=== PATIENT | female | born 1975 | race Caucasian/White ===

== ENCOUNTER → 2019-08-11 07:41 | Outpatient (CLI) | payer OTHER, SELFPAY ==
--- NOTE | ~2019-08-11 | MMUS_ITS ---
EXAMINATION: MM diagnostic mammo unilat LT, US breast LT limited HISTORY: Left breast asymmetry on screening mammogram TECHNIQUE: Additional 3-D tomosynthesis images of the left breast were performed and synthetic 2-D im ages were generated. CAD analysis was submitted and interpreted. High resolution limited left breast ultrasound was performed. COMPARISON: 07/25/2019, 02/24/2016 FINDINGS: MAMMOGRAPHIC FINDINGS: There is a persistent asymmetry at the 12:00 location in the middle third of the breast 6.5 cm from t he nipple best appreciated on the mediolateral oblique view. No suspicious calcification or principal technical architect ural distortion are identified. ULTRASOUND: There is a 6 mm x 3 mm oval, circumscribed, parallel, hypoechoic mass with no posterior features or i nternal vascularity at the 11:00 location 3 cm from the nipple. An adjacent 5 mm x 3 mm mass with sim ilar sonographic features is also seen. IMPRESSION: 1. Probably benign left breast masses. 2. Recommend 6 month follow-up BI-RADS category 3, probably benign findings. Reviewed, dictated and finalized at location A. LESS MANAGER IMPRESSION: 1. Probably benign left breast masses. 2. Recommend 6 month follow-up BI-RADS category 3, probably benign findings.
== END ==
PROVIDERS: PCP Obstetrics & Gynecology Gynecology; Visit Provider Obstetrics & Gynecology Gynecology
DX: R92.8 Other abnormal and inconclusive findings on diagnostic imaging of breast (principal)
CPT/HCPCS: 76642; 77065

== ENCOUNTER → 2020-01-25 07:57 | Outpatient (CLI) | payer OTHER, SELFPAY ==
--- NOTE | ~2020-01-25 | MMUS_ITS ---
EXAMINATION: MM diagnostic desirae LT w jesse, US breast LT limited HISTORY: Six-month follow-up for probably benign left breast mass TECHNIQUE: Craniocaudal, mediolateral, and mediolateral oblique 3-D tomosynthesis images of the left breast were performed and synthetic 2-D images were generated. CAD analysis was submitted and interpr eted. High resolution limited left breast ultrasound was performed. COMPARISON: 08/11/2019, 07/25/2019, 02/24/2016 BREAST PARENCHYMAL COMPOSITION: The breasts are extremely dense, which lowers the sensitivity of mamm ography. FINDINGS: MAMMOGRAPHIC FINDINGS: An asymmetry in the middle/posterior third of the breast 7 cm from the nipple on the mediolateral obl ique view is stable and has an appearance similar to the 2016 comparison. There has been no suspiciou s interval change. ULTRASOUND: A 7 mm x 3 mm oval, circumscribed, parallel, hypoechoic mass with posterior acoustic enhancement and no internal vascularity is present at the 11:00 location 3 cm from the nipple. An adjacent 4 mm x 2 m m mass with similar sonographic features has slightly decreased in size. There is been no suspicious interval change. IMPRESSION: 1. Stable, probably benign left breast masses. 2. Recommend 6 month follow-up left diagnostic mammogram and ultrasound. BI-RADS category 3, probably benign findings. Reviewed, dictated and finalized at location A. IMPRESSION: 1. Stable, probably benign left breast masses. 2. Recommend 6 month follow-up left diagnostic mammogram and ultrasound. BI-RADS category 3, probably benign findings.
== END ==
PROVIDERS: Visit Provider Obstetrics & Gynecology Gynecology
DX: R92.8 Other abnormal and inconclusive findings on diagnostic imaging of breast (principal)
CPT/HCPCS: 76642; 77061; 77065; G0279

== ENCOUNTER → 2020-09-30 14:11 | Outpatient (CLI) | payer OTHER, SELFPAY ==
--- NOTE | ~2020-09-30 | MMUS_ITS ---
EXAMINATION: MM diagnostic desirae BI w jesse, US breast LT limited HISTORY: Follow-up left breast masses TECHNIQUE: Additional 3-D tomosynthesis images of breasts were performed and synthetic 2-D images wer e generated. CAD analysis was submitted and interpreted. High resolution Limited left breast ultrasou nd was performed. COMPARISON: Comparison to multiple prior studies sequentially, with oldest reviewed study dated 02/23. BREAST PARENCHYMAL COMPOSITION: The breasts are extremely dense, which lowers the sensitivity of mamm ography FINDINGS: MAMMOGRAPHIC FINDINGS: . There are no suspicious masses, calcifications or architectural distortion in either breast to sugg est malignancy. ULTRASOUND: Limited left breast ultrasound: There are adjacent small oval hypoechoic masses of the left breast at 11:00, 3 cm from the nipple, largest measuring 5 mm, likely benign. These masses are oval circumscri bed parallel without posterior features or internal vascularity. IMPRESSION: 1. Probable benign left breast masses. 2. Recommend 6 month follow-up left breast ultrasound BI-RADS category 3, probably benign findings. Reviewed, dictated and finalized at location A. IMPRESSION: 1. Probable benign left breast masses. 2. Recommend 6 month follow-up left breast ultrasound BI-RADS category 3, probably benign findings.
== END ==
PROVIDERS: PCP Family Medicine; Visit Provider Obstetrics & Gynecology Gynecology
DX: R92.8 Other abnormal and inconclusive findings on diagnostic imaging of breast (principal)
CPT/HCPCS: 76642; 77062; 77066; G0279

== ENCOUNTER → 2021-04-28 15:20 | Outpatient (CLI) | payer OTHER, SELFPAY ==
--- NOTE | ~2021-04-28 | US_ITS ---
US breast LT limited 04/28/2021 15:36 Indication: Follow-up left breast mass Procedure: High-resolution Limited ultrasound of the left breast Comparison: Ultrasound dated 09/30/2020 Findings: There has been slight enlargement of irregular shaped hypoechoic mass measuring 8 x 6 x 7 m m compared with 5 x 3 x 3 mm on prior examination. There is subtle posterior acoustic enhancement. Impression: 1: Slightly increased size of 8 mm left breast mass at 11:00, 3 cm from the nipple. BI-RADS CATEGORY 4-SUSPICIOUS ABNORMALITY RECOMMENDATION: Ultrasound-guided left breast biopsy recommended. Reviewed, dictated and finalized at location A. Impression: 1: Slightly increased size of 8 mm left breast mass at 11:00, 3 cm from the nip ple. BI-RADS CATEGORY 4-SUSPICIOUS ABNORMALITY RECOMMENDATION: Ultrasound-guided left breast biopsy recommended.
== END ==
PROVIDERS: Visit Provider Obstetrics & Gynecology Gynecology
DX: N63.20 Unspecified lump in the left breast, unspecified quadrant (principal)
CPT/HCPCS: 76642

== ENCOUNTER 2021-05-15 09:07 | Outpatient (CLI) | payer OTHER, SELFPAY ==
--- NOTE | ~2021-05-15 | US_ITS ---
Consultation: Real-time imaging of the left breast demonstrates normal heterogeneous echotexture. The area of interest noted on prior examination has a similar appearance to surrounding breast parenchym a. No discrete mass is identified which is suspicious for malignancy. Short-term follow-up mammogram and ultrasound in 6 months recommended. BI-RADS CATEGORY 3-PROBABLY BENIGN FINDING RECOMMENDATION: Six-month follow-up diagnostic left mammogram and ultrasound recommended. Reviewed, dictated and finalized at location A.
== END 2021-05-15 09:08 | disposition home or self-care (01) ==
PROVIDERS: PCP Family Medicine; Visit Provider Surgery
DX: R92.8 Other abnormal and inconclusive findings on diagnostic imaging of breast (principal)
CPT/HCPCS: 99199

== ENCOUNTER → 2021-06-21 14:30 | Outpatient (CLI) | payer OTHER, SELFPAY ==
--- NOTE | ~2021-06-21 | US_ITS ---
EXAMINATION: US pelvic complete EXAM DATE: 06/21/2021 14:51 INDICATION: Other intra-abdominal and pelvic swelling, mass and lump. TECHNIQUE: Pelvic transabdominal sonogram was performed. There are multiple grayscale and Doppler im ages available for interpretation. Comparison is made to prior examination from 07/01/2015. FINDINGS: Uterus measures 8.4 x 5.2 x 7.4 cm, with multiple fibroids identified measuring up to 5 cm . Endometrial stripe measures 6 mm, within normal limits. There is no free pelvic fluid. Right adnexa: The ovary is not identified. There is no adnexal mass. Left adnexa: The ovary is not identified. There is no adnexal mass. IMPRESSION: Fibroid uterus. Reviewed, dictated and finalized at location A. ER HELPER IMPRESSION: Fibroid uterus.
== END ==
PROVIDERS: PCP Family Medicine; Visit Provider Nurse Practitioner
DX: R19.09 Other intra-abdominal and pelvic swelling, mass and lump (principal); D25.9 Leiomyoma of uterus, unspecified
CPT/HCPCS: 76856

== ENCOUNTER 2022-03-29 17:09 | Emergency (ER) | payer OTHER, SELFPAY ==
--- NOTE | 2022-03-29 17:12 | ED.FEMALEGU ---
HPI - Female Genitourinary General Chief complaint: Urogenital-Female Stated complaint: Possible UTI Time Seen by Provider: 03/29/22 17:32 Source: patient and RN notes reviewed Mode of arrival: ambulatory Limitations: no limitations History of Present Illness HPI Narrative: 46-year-old female presents with concern for urinary tract infection. She reports she began having urinary frequency and bladder pressure with some mild right side pain and nausea. She reports having normal bowel movements, she has not concern for STDs. She reports she has had a urinary tract infection in the past, however she does not have history of frequent UTIs. She denies fever, body aches, chills, sweats, vomiting, urgency, hematuria. MD elicited complaint: UTI Related Data Home Medications Medication Instructions Recorded Confirmed norgestimate-ethinyl estradiol 1 tablet PO DAILY 05/03/21 03/29/22 0.18 mg/0.215mg/0.25mg-35 mcg(28)tablet (Tri Femynor) Allergies Allergy/AdvReac Type Severity Reaction Status Date / Time ciprofloxacin AdvReac Intermediate NAUSEA AND Verified 03/29/22 17:13 STOMACH PAIN Review of Systems Review of Systems: CONSTITUTIONAL: Denies malaise, chills, sweats, or fever. CARDIOVASCULAR: Denies chest pain, palpitations, or edema. RESPIRATORY: Denies cough or dyspnea. GASTROINTESTINAL: Denies abdominal pain, vomiting, diarrhea. Reports nausea GENITOURINARY: Reports frequency, suprapubic pressure. Denies dysuria, urgency, hematuria, reports mild right side discomfort SKIN: Denies rash or itching. MUSCULOSKELETAL: Denies back pain or myalgia. All systems reviewed & are unremarkable except as noted in HPI and below PMFSH Past Medical History Medical History High cholesterol Surgical History Surgical History H/O exploratory laparotomy (1994, ) Family History Family History Mother Hypertension Grandparent Carcinoma of colon Father Diabetes mellitus Hypothyroid High cholesterol Other Family history of malignant neoplasm of breast Social History Social History Smoking status: Never smoker Alcohol intake: never Comments At time of signature, agree with nursing past medical, surgical, social and family history. There is no relevant family history pertinent to the presenting complaint Exam Narrative: GENERAL: Well-appearing, well-nourished, and in no acute distress. HEAD: Normocephalic. EYES: PERRLA, conjunctivae clear. NECK: Supple. No lymphadenopathy CHEST: Clear to auscultation. No respiratory distress. HEART: Regular rate and rhythm. ABDOMEN: Soft, nontender upon palpation, nondistended, normal active bowel sounds, no palpable or pulsatile masses, no guarding. No CVA tenderness SKIN: Warm, dry, no rash. NEURO: Alert and oriented x3. PSYCH: Normal mood and affect Course Course Emergency Course: Discussed UA findings with patient, discussed option of waiting for urine culture results to find out if an antibiotic is necessary or starting antibiotic now. Patient would prefer to start an antibiotic now. Patient is aware of diagnosis, understands and agrees to treatment plan. Anticipatory guidance given. Patient agrees to follow-up as directed and is aware of reasons to seek care at the emergency department. Portions of this record may have been created with voice recognition software Level of Care: Express Care Visit Vital Signs Vital signs: Reviewed. MDM - Female Genitourinary MDM Narrative Medical decision making narrative: Exam findings and UA show no acute concerns or changes; patient is non-toxic appearing and is in no distress. Patient is appropriate for outpatient treatment and follow-up. Differential Diagnosis Differential ananya
[2022-03-29 17:13] VITALS: BP 131/67; PULSE 60; RESP 15; TEMP 36.5; O2SAT 100
== END 2022-03-29 17:41 | disposition home or self-care (01) ==
PROVIDERS: Emergency Provider Nurse Practitioner
DX: R35.0 Frequency of micturition (principal); R11.0 Nausea; E78.00 Pure hypercholesterolemia, unspecified
CPT/HCPCS: 81003; 87086; 99213; G0463

== ENCOUNTER → 2022-07-04 16:04 | Outpatient (CLI) | payer OTHER, SELFPAY ==
--- NOTE | ~2022-07-04 | XR_ITS ---
Lumbosacral Spine: AP, oblique, and lateral views Clinical History: Pain Findings: Mild levoscoliosis noted. The vertebral bodies and posterior elements are intact. The int ervertebral disc spaces are preserved. The sacroiliac joints are normally outlined. Impression: Mild levoscoliosis. Reviewed, dictated and finalized at [facility]. R QUALITY ASSISTANT Impression: Mild levoscoliosis.
--- NOTE | ~2022-07-04 | XR_ITS ---
Thoracic spine: Clinical Indication: Pain AP and lateral views were performed. No fracture is seen. Mild dextroscoliosis noted. The intervertebral disc spaces appear normal. Parave rtebral soft tissues appear normal. Impression: Mild dextroscoliosis. Reviewed, dictated and finalized at [facility]. KEEPER RECEPTIONIST Impression: Mild dextroscoliosis.
== END ==
PROVIDERS: PCP Family Medicine; Visit Provider Family Medicine
DX: M41.9 Scoliosis, unspecified (principal); M54.50 Low back pain, unspecified; M54.6 Pain in thoracic spine
CPT/HCPCS: 72072; 72110

== ENCOUNTER 2023-09-25 05:59 | Day surgery (SDC) | payer OTHER, SELFPAY ==
[2023-09-13 10:04] VITALS: BMI 18.3
[2023-09-16 08:14] VITALS: BMI 18.1
[2023-09-25 06:46] VITALS: BP 141/76; PULSE 80; RESP 16; TEMP 37.1; O2SAT 100
[2023-09-25] MEDS: LACTATED RINGERS 1,000 ML 150 ML IV CONT (07:04)
--- NOTE | 2023-09-25 07:16 | WPDHPUPDATE1 ---
History and Physical Update Update Date/Time: 09/25/23 07:16 History and Physical has been reviewed, including an updated exam of the patient. There are NO changes in the patient's condition. Risks, benefits, and alternatives have been discussed and questions answered. Patient agrees to proceed with procedure.
--- NOTE | 2023-09-25 07:42 | WPDANESEPPF ---
Anes - Initial Pre Proc Eval Procedure: Operation Date: 09/25/23 08:00 Proposed Procedures p EGD - Sukhi Sun MD s Diagnostic Colonoscopy - Sukhi Sun MD Date/Time: 09/25/23 07:42 Surgeon: Sukhi Sun MD Pre Op Diagnosis: Non-celiac gluten sensitivity,[place],diarrhea, Patient Data Age: 48 Gender: F Height: 1.63 m Weight: 47.7 kg Last Vital Signs Temp 37.1 C 09/25/23 06:46 Pulse 80 09/25/23 06:46 Resp 16 09/25/23 06:46 BP 141/76 H 09/25/23 06:46 Pulse Ox 100 09/25/23 06:46 O2 Del Method Room Air 09/25/23 06:46 Allergies Allergy/AdvReac Type Severity Reaction Status Date / Time ciprofloxacin AdvReac Intermediate NAUSEA AND Verified 09/25/23 06:40 STOMACH PAIN food preservatives Allergy Unknown Hives Uncoded 09/25/23 06:40 Home Medications Medication Instructions Recorded Confirmed Type norgestimate-ethinyl estradiol 1 tablet PO DAILY 05/03/21 09/25/23 History 0.18 mg/0.215mg/0.25mg-35 mcg(28)tablet (Tri Femynor) epinephrine 0.3 mg/0.3 mL 0.3 mg (0.3 mL) IM ONCE #2 ea 06/29/22 09/25/23 Rx injection, auto-injector (EpiPen 2-Chilo) fexofenadine 60 mg-pseudoephedrine 1 tablet PO Q12H PRN Allergic 06/29/22 09/25/23 History ER 120 mg tablet,ext.release,12 hr Symptoms (Rain-D 12 Hour) lactase 9,000 unit tablet 9,000 unit PO ONCE 06/29/22 09/25/23 History omega-3 fatty acids 1,000 mg 1,000 mg PO DAILY 10/19/22 09/25/23 History capsule (Super [place]-3) oxymetazoline 1 % topical cream 1 applic topical DAILY 09/10/23 09/25/23 History (Rhofade) Patient hx anesthesia problems: post op nausea/vomiting Family hx anesthesia problems: none Results Review: All pre-operative results and documents have been reviewed as part of the pre-operative evaluation. PMFSH Past Medical History Medical History Abdominal pain Absolute anemia Diarrhea Fibroids Food allergy Gluten intolerance High cholesterol Nausea Seasonal allergies Surgical History Surgical History H/O exploratory laparotomy (1994, ) Family History Family History Mother Hypertension Grandparent Carcinoma of colon Father Diabetes mellitus Hypothyroid High cholesterol Other Family history of malignant neoplasm of breast Social History Social History Smoking status: Never smoker Second hand tobacco smoke exposure: No Alcohol intake: never Substance use: never Substance use type: does not use Lack of Transportation: No Lack of Food: Never True Current Housing: I Have Housing Concerned About Future Housing: No Difficulty Paying Gas/Electric Bills: No Difficulty Paying for Meds: No Currently Unemployed: No Education: Bachelor's Degree Difficulty w/ Childcare or Family Care: No Living arrangements: with family Gender identity (if verbalized by the patient): Male Spiritual care concerns: No Agree to blood products: Yes Anes - Eval Final PreProcedure Day of Procedure 09/25/23 07:42 Patient weight: thin Heart: regular rate and rhythm Lungs: clear to auscultation Airway: Mallampati scale class 1 Neurological: alert and oriented Last oral intake: >/= 8 hours ASA classification: II Emergent: no Anesthetic plan: proceed Anesthesia type and monitoring: general GIVS and standard monitoring Results Review: All pre-operative results and documents have been reviewed as part of the pre-operative evaluation. Informed Consent: The patient's anesthetic plan and its attendant risks and benefits were discussed with the patient/family/POA. Questions were solicited and answers provided to the satisfaction of the patient/family/POA.
[2023-09-25 08:20] VITALS: BP 103/60; PULSE 72; RESP 16; O2SAT 100
[2023-09-25 08:30] VITALS: BP 108/68; PULSE 73; RESP 18; O2SAT 100
[2023-09-25 08:40] VITALS: BP 129/70; PULSE 65; RESP 16; O2SAT 99
--- NOTE | 2023-09-25 08:47 | WPDANESPN ---
Anes - Prog Note Post-Op Date/Time: 09/25/23 08:47 Cardiovascular status: normal Respiratory status: normal Airway patency: baseline Mental status: baseline Post-Op hydration status: normal Vital Signs: Last Vital Signs Temp 37.1 C 09/25/23 06:46 Pulse 73 09/25/23 08:30 Resp 18 09/25/23 08:30 BP 108/68 09/25/23 08:30 Pulse Ox 100 09/25/23 08:30 O2 Del Method Room Air 09/25/23 08:30 Pain Score (VAS): 0 I/O: Intake & Output 09/24/23 09/25/23 09/25/23 23:59 07:59 15:59 Intake Total 500 Balance 500 Patient Feedback: Patient satisfied with anesthetic care.
== END 2023-09-25 08:50 | disposition home or self-care (01) ==
PROVIDERS: PCP Family Medicine; Visit Provider Internal Medicine Gastroenterology
PROC: 0DJ08ZZ Inspection of Upper Intestinal Tract, Via Natural or Artificial Opening Endoscopic (ICD-10-PCS; CPT 43235; principal; 2023-09-25 08:00)
PROC: 0DJD8ZZ Inspection of Lower Intestinal Tract, Via Natural or Artificial Opening Endoscopic (ICD-10-PCS; CPT 45378; 2023-09-25 08:00)
DX: R19.7 Diarrhea, unspecified (principal); R11.2 Nausea with vomiting, unspecified
CPT/HCPCS: 45380; 43239

== ENCOUNTER 2023-09-25 07:25 | Outpatient (NON) | payer OTHER, SELFPAY | END 2023-09-25 07:26 | disposition home or self-care (01) | LOC: ANHLAB 09-26 07:27 | PROVIDERS: PCP Family Medicine; Visit Provider Internal Medicine Gastroenterology | DX: R10.9 Unspecified abdominal pain (principal); R11.0 Nausea; R19.7 Diarrhea, unspecified | CPT/HCPCS: 88305 ==

== ENCOUNTER 2024-08-18 16:32 | Outpatient (CLI) | payer OTHER, SELFPAY ==
--- NOTE | ~2024-08-18 | XR_ITS ---
HISTORY: M25.561 - Pain in right knee COMPARISON: None TECHNIQUE: 4 views of the right knee were performed FINDINGS: No acute or subacute fracture. Trace medial tibiofemoral joint space narrowing is identified. No suprapatellar joint effusion is identified. The infrapatellar joint space is clear. IMPRESSION: Trace medial tibiofemoral joint space narrowing. Reviewed, dictated and finalized at location A. CTOR OF ACADEMIC
== END 2024-08-18 16:33 | disposition home or self-care (01) ==
LOC: MICIMG 16:32
PROVIDERS: PCP Family Medicine; Visit Provider Family Medicine
DX: M25.561 Pain in right knee (principal)
CPT/HCPCS: 73564

== ENCOUNTER 2024-09-24 08:07 | Emergency (ER) | payer OTHER, SELFPAY ==
--- NOTE | 2024-09-24 08:10 | ED.ANIMALBIT ---
HPI - Animal Bite General Chief Complaint: Animal Bite Stated Complaint: Cat Bite Time Seen by Provider: 09/24/24 08:09 Source: patient Mode of arrival: ambulatory Limitations: no limitations History of Present Illness HPI narrative: Dinora is a 49 year old female patient presenting to the clinic today with c/o a cat bite to her right hand. She reports 3 of her cat got into a fight yesterday and she tried to break them up. Her cats are UTD on vaccinations. Denies fever. Has puncture wound to the ulnar aspect of the hand as well as to the radial aspect of the hand. Has some joint pain to her right thumb mcp. Related Data Home Medications ?Medication ?Instructions ?Recorded ?Confirmed ?Last Taken ?Type norgestimate-ethinyl estradiol 1 tablet PO DAILY 05/03/21 08/27/24 09/23/23 History 0.18 mg/0.215mg/0.25mg-35 mcg(28)tablet (Tri Femynor) fexofenadine 60 mg-pseudoephedrine 1 tablet PO Q12H PRN Allergic 06/29/22 08/27/24 Unknown History ER 120 mg tablet,ext.release,12 hr Symptoms (Rain-D 12 Hour) lactase 9,000 unit tablet 9,000 unit PO ONCE 06/29/22 08/27/24 09/23/23 History omega-3 fatty acids 1,000 mg 1,000 mg PO DAILY 10/19/22 08/27/24 09/23/23 History capsule (Super [place]-3) oxymetazoline 1 % topical cream 1 applic topical DAILY 09/10/23 08/27/24 Unknown History (Rhofade) Allergies Allergy/AdvReac Type Severity Reaction Status Date / Time ciprofloxacin AdvReac Intermediate NAUSEA AND Verified 09/24/24 08:18 STOMACH PAIN Review of Systems Review of Systems: Pertinent positives per HPI. Patient denies any fever, chills, rash, headache, visual changes, dizziness, cough, runny nose, sore throat, shortness of breath, chest pain, palpitations, nausea, vomiting, diarrhea, constipation, abdominal pain, or any urinary issues. PMFSH Past Medical History Medical History Ocular migraine Abdominal pain Nausea Diarrhea Gluten intolerance Food allergy Fibroids Absolute anemia Seasonal allergies High cholesterol Surgical History Surgical History H/O exploratory laparotomy (1994, ) Family History Family History Mother Hypertension Grandparent Carcinoma of colon Father Diabetes mellitus Hypothyroid High cholesterol Other Family history of malignant neoplasm of breast Social History Social History Smoking status: Never smoker Second hand tobacco smoke exposure: No Alcohol intake: never Substance use: never Substance use type: does not use Lack of Transportation: No Lack of Food: Never True Current Housing: I Have Housing Concerned About Future Housing: No Difficulty Paying Gas/Electric Bills: No Difficulty Paying for Meds: No Currently Unemployed: No Education: Bachelor's Degree Difficulty w/ Childcare or Family Care: No Living arrangements: with family Gender identity (if verbalized by the patient): Male Spiritual care concerns: No Agree to blood products: Yes Comments At the time of my signature, I reviewed and agree with the nursing past medical, surgical, social, and family history. There is no relevant family history pertinent to the patient complaint. Exam Narrative: General: Well-developed, well nourished, in no apparent distress Head: Normocephalic, atraumatic. Cardio: Regular rate and rhythm, s1 and s2 normal, no murmur appreciated. Resp: Clear to auscultation bilaterally, no rhonchi, rales, wheezing or rubs. Integumentary: [place], warm, and dry, 4 puncture wounds- two wounds to the ulnar aspect of the hand over the 5th metacaroal and two puncture wounds to the radial aspect of the hand over the 1st metacarpal. Redness, swelling, erythema, and tenderness to palpation, has full rom of fingers Course Course Emergency Course: Portions of this record may have been created with voice recognition software. Level of Care: Express Care Visit Vital Signs Vital signs: Vital Signs Temperature 37.2 C 09/24/24 08:19 Pulse Rate 66 09/24/24 08:19 Respiratory Rate 16 09/24/24 08:19 Blood Pressure 148/85 H 09/24/24 08:19 Pulse Oximetry 99 09/24/24 08:19 Oxygen Delivery Room Air 09/24/24 08:19 Temperature 37.2 C 09/24/24 08:19 Pulse Rate 66 09/24/24 08:19 Respiratory Rate 16 09/24/24 08:19 Blood Pressure 148/85 H 09/24/24 08:19 Pulse Oximetry 99 09/24/24 08:19 Oxygen Delivery Room Air 09/24/24 08:19 Vital signs reviewed MDM - Animal Bite MDM Narrative Medical decision making narrative: At the time of visit patient is resting comfortably on the exam table. Patient appears to be nontoxic. Plan: Patient has infected cat bite to the right hand. Tetanus is greater than 5 years old. Will update tetanus in the clinic today. Prescription for Augmentin was sent to the pharmacy. Supportive measures were discussed with the patient and they voiced understanding discharge instructions and agrees to treatment plan. Return precautions reviewed Differential Diagnosis Differential diagnosis: Likely bite by animal and cat bite Discharge Plan Discharge Clinical Impression: Cat bite of right hand with infection Qualifiers: Encounter type: initial encounter Qualified Code(s): S61.451A - Open bite of right hand, initial encounter Patient Disposition: Home, Self-Care Condition: Stable Instructions: Antibiotic Form, Animal Bite (ED) Additional Instructions: Tdap given in the clinic today Keep wound clean and dry May apply triple antibiotic ointment to the wound twice daily Wash daily with soap and water Watch for signs and symptoms of worsening infection-fever, increase in redness, streaking, swelling, purulent discharge, or increase in pain. Follow up with your PCP in 2-3 days for wound check Patient Language: Citizen Of [place] Prescriptions: New amoxicillin-pot clavulanate 875-125 mg tablet 1 tablet PO Q12H 7 Days Qty: 14 0RF No Action norgestimate-ethinyl estradiol [Tri Femynor] 0.18/0.215/0.25 mg-35 mcg (28) tablet 1 tablet PO DAILY omega-3 fatty acids [Super [place]-3] 1,000 mg capsule 1,000 mg PO DAILY (DME) carpal tunnel brace R See Rx Instructions .Route .MEDSUPPLY Qty: 1 0RF Rx Instructions: As directed at night and during the day prn Rhofade 1 % cream 1 applic topical DAILY celecoxib [Celebrex] 200 mg capsule 200 mg PO DAILY Qty: 30 5RF fexofenadine-pseudoephedrine [Rain-D 12 Hour] 60-120 mg tablet extended release 12 hr 1 tablet PO Q12H PRN (Reason: Allergic Symptoms) lactase 9,000 unit tablet 9,000 unit PO ONCE Rx Instructions: administer with meals and/or snacks epinephrine [EpiPen 2-Chilo] 0.3 mg/0.3 mL auto-injector 0.3 mg IM ONCE Qty: 2 0RF Rx Instructions: as a single dose; may repeat once ergocalciferol (vitamin D2) 1,250 mcg (50,000 unit) capsule 1,250 mcg PO WEEKLY Qty: 14 1RF Follow-up/Referrals: Eliane Schwab MD [Primary Care Provider] - Time of Disposition: 08:26 Quality NIHSS Nursing Documentation ED NIHSS nursing documentation: reviewed/agree
[2024-09-24 08:19] VITALS: BP 148/85; PULSE 66; RESP 16; TEMP 37.2; O2SAT 99
[2024-09-24] MEDS: TETANUS,DIPHTHERIA,AC PERTUSSIS ADULT (0.5 ML) BOOSTRIX IM (08:30)
== END 2024-09-24 08:41 | disposition home or self-care (01) ==
PROVIDERS: Emergency Provider Nurse Practitioner Family; PCP Family Medicine
DX: S61.431A Puncture wound without foreign body of right hand, initial encounter (principal); L08.9 Local infection of the skin and subcutaneous tissue, unspecified; W55.01XA Bitten by cat, initial encounter; Z23 Encounter for immunization; E78.00 Pure hypercholesterolemia, unspecified
CPT/HCPCS: 90471; 90715; 99213; G0463